=== PATIENT | female | born 1985 | race Caucasian/White ===

== ENCOUNTER 2016-08-17 13:46 | Emergency (ER) | payer OTHER ==
[2016-08-17 14:59] LABS: HEMOGLOBIN 12.4 gm/dl (12.3-15.3); RED BLOOD COUNT 4.64 M/UL (4.00-5.10); WHITE BLOOD COUNT 7.2 K/UL (4.5-11.0)
[2016-08-17 15:21] LABS: BUN/CREATININE RATIO 14 (0-10)
== END 2016-08-17 19:30 | disposition home or self-care (01) ==
LOC: ER1 13:46
PROVIDERS: Emergency Medicine
DX: S82.61XG Displaced fracture of lateral malleolus of right fibula, subsequent encounter for closed fracture with delayed healing (principal); J45.909 Unspecified asthma, uncomplicated; B19.20 Unspecified viral hepatitis C without hepatic coma; E16.2 Hypoglycemia, unspecified; F17.200 Nicotine dependence, unspecified, uncomplicated; X58.XXXD Exposure to other specified factors, subsequent encounter
CPT/HCPCS: 29505; 73590; 80048; 85025; 86140; 93971; 99283

== ENCOUNTER 2021-08-07 12:42 | Emergency (ER) | payer OTHER ==
[2021-08-07] MEDS ORDERED: DOXYCYCLINE HY100 MG PO (15:29)
[2021-08-07] MEDS ORDERED: AMOXICILLIN500 MG PO (15:29)
[2021-08-07] MEDS ORDERED: IBUPROFEN600 MG PO (15:29)
== END 2021-08-07 15:40 | disposition home or self-care (01) ==
LOC: ER1 12:42
DX: R59.0 Localized enlarged lymph nodes (principal); M25.552 Pain in left hip; M25.512 Pain in left shoulder; M25.572 Pain in left ankle and joints of left foot; Z01.20 Encounter for dental examination and cleaning without abnormal findings
CPT/HCPCS: 96372; 99283; J0696